=== PATIENT | female | born 1945 | race Two or more races ===

== ENCOUNTER 2018-05-12 08:14 | Inpatient (IN) | payer MEDICAID ==
[2018-04-26 10:38] LABS: APPEARANCE,URINE CLEAR; BILIRUBIN, URINE NEGATIVE (NEGATIVE); COLOR,URINE PALE YELLOW; GLUCOSE, URINE (UA) NEGATIVE (NEGATIVE); KETONES,URINE NEGATIVE (NEGATIVE); LEUKOCYTE ESTERASE ,URINE 3+ (NEGATIVE); NITRITE,URINE NEGATIVE (NEGATIVE); PH,URINE 7 (4.5-8.0); PROTEIN,URINE NEGATIVE (NEGATIVE); UROBILINOGEN,URINE NORMAL MG/DL (0.0-1.0)
[2018-04-26 10:45] LABS: BASOPHILS % (AUTO) 0.8 % (0.0-2.0); EOSINOPHILS % (AUTO) 0.7 % (0.0-3.0); HEMATOCRIT 42.7 % (37.0-47.0); HEMOGLOBIN 13.8 G/DL (12.0-16.0); LYMPHOCYTES % (AUTO) 32.5 % (20.0-45.0); MEAN CORPUSCULAR VOLUME 88 FL (80-99); MONOCYTES % (AUTO) 9.5 % (1.0-10.0); NEUTROPHILS % (AUTO) 56.5 % (45.0-75.0); PLATELET COUNT 193 K/UL (150-450); RED BLOOD COUNT 4.86 M/UL (4.20-5.40); RED CELL DISTRIBUTION WIDTH 12.8 % (11.6-14.8); WHITE BLOOD COUNT 6.7 K/UL (4.8-10.8)
[2018-04-26 10:54] LABS: INR 1.1 (0.9-1.1)
[2018-04-26 11:10] LABS: ANION GAP 5 mmol/L (5-15); BLOOD UREA NITROGEN 13 mg/dL (7-18); CALCIUM 9.5 MG/DL (8.5-10.1); CARBON DIOXIDE 32 MMOL/L (21-32); CHLORIDE 104 MMOL/L (98-107); CREATININE 0.7 MG/DL (0.55-1.30); POTASSIUM 4.9 MMOL/L (3.5-5.1); SODIUM 141 MMOL/L (136-145)
--- NOTE | 2018-04-26 11:26 | Diagnostic Imaging Report ---
Indication: Cough Comparison: None 2 views of the chest obtained. Findings: Heart size is normal. The aorta is mildly enlarged. Lungs are clear. Old rib fractures noted at the apex of the right lung. Bones are osteopenic. IMPRESSION: No acute disease. Evidence of previous trauma involving the right upper chest wall
--- NOTE | 2018-04-26 14:44 | Cardiology Report ---
APPROVED REPORT EKG Measurement Heart [id number] Normal sinus rhythm Normal ECG
--- NOTE | 2018-05-11 11:00 | Pre-op HX & Phy Repo 2 SIG ---
DATE OF OUTPATIENT SURGERY: 05/12/2018. HISTORY OF PRESENT ILLNESS: The patient is a 73-year-old female in overall stable health, who presented recently for screening mammogram. This revealed a mammographic lesion in the right breast at 11 o'clock 2 cm deep to the nipple. Core needle biopsy revealed invasive ductal carcinoma. She is scheduled to undergo right breast partial mastectomy with preoperative needle localization and right axillary lymph node biopsy, which will likely include resection of the nipple-areola complex. PAST MEDICAL HISTORY/MEDICATIONS: thyroid and omeprazole for gastritis. ALLERGIES: None. OPERATIONS: None. PHYSICAL EXAMINATION: VITAL SIGNS: The patient is 5 feet 6 inches, 172 pounds. HEENT: Within normal limits. LUNGS: Clear. HEART: Regular rhythm. BREASTS: Examination of the breast reveals breasts are medium in size. There is no palpable mass in either breast. There is no palpable axillary or supraclavicular lymphadenopathy. ABDOMEN: Soft. PELVIC: Per primary care physician. RECTAL: Per primary care physician. EXTREMITIES: Without edema. NEUROLOGIC: Physiologic. IMPRESSION: Invasive ductal carcinoma, right breast. ER and CA positive and HER2 negative. PLAN: Full discussion has been had with the patient regarding the nature of her condition, the nature of the surgery, indications, alternatives, options, and risks including bleeding, infection, need for additional procedures based on final pathology regarding breast and axilla, likely need to remove the nipple-areola complex, need for radiation therapy to the breast and possible need for chemotherapy or hormonal therapy based on final pathology. All questions have been answered. The patient understands and agrees to proceed. Deonte Giang M.D. DR: RITCHIE JOB#: [id number] CC: INGA
[2018-05-12] VITALS (15 sets, daily range): BP systolic 116–159; BP diastolic 64–83
[~2018-05-12] VITALS: Ht 162.6 cm; Wt 77.6 kg
[2018-05-12] MEDS ORDERED: LEVOTHYROXINE75 MCG ORAL (09:06)
[2018-05-12] MEDS ORDERED: OMEPRAZOLE10 M1 ORAL (09:06)
[2018-05-12] MEDS ORDERED: Lidocaine 1% MPF 10mg/ml 5ml ONE (09:20)
[2018-05-12] MEDS ORDERED: Sodium Chloride 10ml vial INJ ONE (09:20)
[2018-05-12] MEDS ORDERED: Dexamethasone 4mg/ml vial ONE (09:20)
[2018-05-12] MEDS ORDERED: Midazolam 2mg/2ml Inj ONE (09:24)
[2018-05-12] MEDS ORDERED: fentaNYL 100 mcg/2 mL IV ONE (09:24)
[2018-05-12] MEDS ORDERED: LR 1000ml 1,000 ML IVLG SCH (09:31)
[2018-05-12] MEDS ORDERED: NeoSporin Gu Irrig 1ml Amp IRRIG ONE (09:41)
[2018-05-12] MEDS ORDERED: Bacitracin 50000 Units Vial ONE (09:41)
--- NOTE | 2018-05-12 09:42 | Anethesia Preoperative Eval ---
Anesthesia Pre-op PMH/ROS General Date of Evaluation: May 12, 2018 Time of Evaluation: 09:56 Anesthesiologist: Mike ASA Score: ASA 3 Mallampati Score Class I : Soft palate, uvula, fauces, pillars visible Class II: Soft palate, uvula, fauces visible Class III: Soft palate, base of uvula visible Class IV: Only hard plate visible Mallampati Classification: Class II Surgeon: Padmaja Diagnosis: R Breast CA Surgical Procedure: R Breast Partial Mastectomy, Lymph Node Biopsy Anesthesia History: none Family History: no anesthesia problems Allergies: Coded Allergies: No Known Allergies (Unverified , 05/11/18) Medications: see eMAR Past Medical History Cardiovascular: Reports: HTN Gastrointestinal/Genitourinary: Reports: GERD Endocrine: Reports: hypothyroidism Hematology/Immune: Reports: other - R Breast CA Other: obesity - BMI 30 Anesthesia Pre-op Phys. Exam Physician Exam Last Vital Signs Date Time Temp Pulse Resp B/P (MAP) Pulse Ox O2 Delivery O2 Flow Rate FiO2 05/12/18 09:09 97.9 76 20 159/79 (105) 96 97.9 05/12/18 08:42 Room Air Constitutional: NAD Neurologic: CN 2-12 intact Cardiovascular: RRR Respiratory: CTA Gastrointestinal: S/NT/ND Airway Exam Mallampati Score: Class II MO: full ROM: full Teeth: missing, intact Anesthesia Pre-op A/P Risk Assessment & Plan Assessment: ASA 3 Plan: GA, SED Status Change Before Surgery: No Pre-Antibiotics Dru Gram Ancef IV Given Within 1 Hr of Incision: Yes Time Given: 10:11 Spike Melton MD May 12, 2018 09:42
[2018-05-12] MEDS ORDERED: Labetalol 5mg/ml 20ml vial IV PRN (09:45)
[2018-05-12] MEDS ORDERED: Atropine Sulfate 0.4mg/ml inj IVP PRN (09:45)
[2018-05-12] MEDS ORDERED: HYDROcodone/Acetamin 7.5/325 tab ORAL PRN (09:45)
[2018-05-12] MEDS ORDERED: Hydromorphone 0.5mg/0.5ml inj IVP PRN (09:45)
[2018-05-12] MEDS ORDERED: oxyCODONE HCL/Acetaminophen 5/325mg ORAL PRN (09:45)
[2018-05-12] MEDS ORDERED: Midazolam 2mg/2ml Inj IVP PRN (09:45)
[2018-05-12] MEDS ORDERED: DiphenhydrAMINE 50mg/ml Inj IVP PRN (09:45)
[2018-05-12] MEDS ORDERED: Ketorolac 30mg Inj IV PRN ×2 (09:45)
[2018-05-12] MEDS ORDERED: Meperidine 50mg/ml Inj(FOR RIGORS ONLY) IVP PRN (09:45)
[2018-05-12] MEDS ORDERED: LORazepam Inj 2mg/ml 1ml IV PRN (09:45)
[2018-05-12] MEDS ORDERED: Norco 5mg/325mg tab ORAL PRN (09:45)
[2018-05-12] MEDS ORDERED: Acetaminophen (Non formulary) 100 ML IV ONE (09:45)
[2018-05-12] MEDS ORDERED: Metoclopramide 10mg/2ml Inj IVP PRN (09:45)
[2018-05-12] MEDS ORDERED: fentaNYL 100 mcg/2 mL IV PRN (09:45)
--- NOTE | 2018-05-12 09:50 | Immediate Post-Op Evaluation ---
Immediate Post-Op Evalulation Immediate Post-Op Evalulation Procedure: R Breast Partial Mastectomy, Lymph Node Biopsy Date of Evaluation: May 12, 2018 Time of Evaluation: 12:07 IV Fluids: 600 LR Blood Products: 0 Estimated Blood Loss: 15 Urinary Output: 0 Blood Pressure Systolic: 146 Blood Pressure Diastolic: 76 Pulse Rate: 87 Respiratory Rate: 16 O2 Sat by Pulse Oximetry: 100 Temperature (Fahrenheit): 97.8 Pain Score (1-10): 3 Nausea: No Vomiting: No Complications 0 Patient Status: awake, reacts, patent, none Hydration Status: adequate Dru Gram Ancef IV Given Within 1 Hr of Incision: Yes Time Given: 10:11 Spike Melton MD May 12, 2018 09:50
--- NOTE | 2018-05-12 09:51 | 48 Hour Post Anesthesia Eval ---
Post Anesthesia Evaluation Procedure: R Breast Partial Mastectomy, Lymph Node Biopsy Date of Evaluation: May 12, 2018 Airway: patent Nausea: No Vomiting: No Pain Intensity: 2 Hydration Status: adequate Cardiopulmonary Status: Stable Mental Status/LOC: patient returned to baseline Follow-up Care/Observations: 0 Post-Anesthesia Complications: 0 Follow-up care needed: ready to discharge Spike Melton MD May 12, 2018 09:51
[2018-05-12] MEDS ORDERED: Propofol 200mg/20ml IV ONE (10:00)
[2018-05-12] MEDS ORDERED: NS Irrig 1000ml ONE (10:00)
[2018-05-12] MEDS ORDERED: LR 1000ml ONE (10:00)
[2018-05-12] MEDS ORDERED: Sterile Water Irrig 1000ml IRRIG ONE (10:00)
--- NOTE | 2018-05-12 10:02 | Pre-Procedure Note/Attestation ---
Pre-Procedure Note/Attestation Complete Prior to Procedure Planned Procedure: left Procedure Narrative: right breast partial mastectomy including nipple/areola with pre-operative needle localization and right axillary lymph node biopsy Indications for Procedure Pre-Operative Diagnosis: invasive ductal carcinoma right breast Attestation I attest that I discussed the nature of the procedure; its benefits; risks and complications; and alternatives (and the risks and benefits of such alternatives ), prior to the procedure, with the patient (or the patient's legal client relations representative). I attest that, if there was a reasonable possibility of needing a blood transfusion, the patient (or the patient's legal client relations representative) was given the [place] Department [employer] Services standardized written summary, pursuant to the [place] Blood Safety Act ([place] Health and Safety Code # 1645, as amended). I attest that I re-evaluated the patient just prior to the surgery and that there has been no change in the patient's H&P, except as documented below:none Deonte Giang MD May 12, 2018 10:02
[2018-05-12] MEDS ORDERED: ePHEDrine 50mg/ml Inj ONE (10:46)
[2018-05-12] MEDS ORDERED: Ketorolac 30mg Inj ONE (11:24)
--- NOTE | 2018-05-12 11:52 | Brief Operative Note ---
Immediate Post Operative Note Operative Note Pre-op Diagnosis: invasive ductal carcinoma right breast Procedure: right breast partial mastectomy including nipple/areola with pre-op needle localization and right axillary lymph node biopsy Post-op Diagnosis: same Post-op Diagnosis: same as pre-op Findings: consistent w/pre-op dx studies Surgeon: ariadna Anesthesiologist: basia Anesthesia: general Specimen: yes - breast, axillary node Complications: none Condition: stable Fluids: see anesthesia record Estimated Blood Loss: minimal Drains: BEBA Implant(s) used?: No Deonte Giang MD May 12, 2018 11:52
[2018-05-12] MEDS ORDERED: HYDROmorphone 1mg/ml Carpuject SUBQ PRN (12:00)
[2018-05-12] MEDS: D5 1/2NS w/KCl 20mEq 1,000 ML IV SCH (16:55)
--- NOTE | 2018-05-12 18:45 | Operative Note - Dictated ---
DATE OF OPERATION: 05/12/2018 SURGEON: Deonte Giang M.D. SENIOR GAME DEVELOPER SURGEON: None. ANESTHESIOLOGIST: Spike Melton M.D. TYPE OF ANESTHESIA: General. PREOPERATIVE DIAGNOSIS: Invasive ductal carcinoma, right breast, retroareolar. POSTOPERATIVE DIAGNOSIS: Invasive ductal carcinoma, right breast, retroareolar. OPERATION PERFORMED: Right breast partial mastectomy including nipple and areola with preoperative needle localization and right axillary lymph node biopsy. DESCRIPTION OF PROCEDURE: The patient was taken to the operating room and under general anesthesia with sequential compression device stockings in place, she was prepped and draped in the usual fashion including the right upper extremity in a sterile field. The carcinoma was just below the nipple and I did not feel I could safely save the nipple and areola. A transversely oriented elliptical incision was made and flaps dissected circumferentially with the needle localization wire brought into the field. The lesion was resected down to the chest wall circumferentially orienting it medially and superiorly with the nipple being anterior. Margins were assessed by the pathologist and additional superior tissue was taken to be sure that superior margin was clear. The field was irrigated and hemostasis was secured. The incision was closed in layers with 2-0 and 3-0 Vicryl followed by 4-0 Monocryl subcuticular suture. Attention was directed to the right axilla where a transverse curvilinear right axillary incision was made achieving hemostasis with cautery and incising the clavipectoral fascia. There were no abnormal lymph nodes. A lower-level dissection was performed achieving hemostasis with clips and cautery. Through a separate stab incision inferiorly, a 19 mm Barry drain was placed into the axilla and sutured to the skin with a 2-0 silk suture. The field was irrigated and hemostasis was secured. The pathologist confirmed the presence of lymph node in the tissue. The incision was closed with interrupted 2-0 and 3-0 Vicryl and the skin closed with continuous 4-0 Monocryl subcuticular suture. Tincture of benzoin and half-inch Steri-Strips were applied to both incisions followed by dry sterile dressing. Final sponge and needle counts were correct. A postoperative surgical brassiere was applied. The patient tolerated the procedure well and left the operating room in good condition. Don Trav Giang DR: Arik JOB#: [id number] CC:
[2018-05-12] MEDS: Norco 5mg/325mg tab ORAL PRN (20:11)
[2018-05-13] VITALS: BP 109/59
[2018-05-13 04:00] VITALS: BP 111/60
[2018-05-13] MEDS: D5 1/2NS w/KCl 20mEq 1,000 ML IV SCH (04:23)
[2018-05-13] MEDS: Norco 5mg/325mg tab ORAL PRN (06:25)
[2018-05-13 08:00] VITALS: BP 114/65
--- NOTE | 2018-05-13 08:41 | General Progress Note ---
Progress Note Progress Note AVSS Having pain relieved with [place]. Ambulated only to bathroom. Tolerating po intake Right breast and axillary incisions clean with intact steristrips. BEBA drain with drainage only in tubing Imp. Stable Plan: discharge with supplies/limitations/instructions provided/discussed f/u 05/19 Rx [place] 5/325 #20 Deonte Giang MD May 13, 2018 08:41
[2018-05-13] MEDS ORDERED: NORCO 5-325 TA1 EACH ORAL ×2 (09:04→09:05)
[2018-05-13 11:24] VITALS: BP 111/60
--- NOTE | 2018-05-13 11:24 | 48 Hour Post Anesthesia Eval ---
Post Anesthesia Evaluation Procedure: R Breast Partial Mastectomy, Lymph Node Biopsy Date of Evaluation: May 13, 2018 Time of Evaluation: 06:20 Blood Pressure Systolic: 111 0: 60 Pulse Rate: 74 Respiratory Rate: 18 Temperature (Fahrenheit): 97.9 O2 Sat by Pulse Oximetry: 94 Airway: patent Nausea: No Vomiting: No Pain Intensity: 2 Hydration Status: adequate Cardiopulmonary Status: at baseline Mental Status/LOC: patient returned to baseline - 0 Post-Anesthesia Complications: 0 Follow-up care needed: N/A - further care as per primary team Laila Esposito MD May 13, 2018 11:24
--- NOTE | 2018-05-16 14:18 | Discharge Summary ---
Discharge Summary Hospital Course Date of Admission May 12, 2018 at 14:42 Date of Discharge May 13, 2018 at 10:20 Admitting Diagnosis breast cancer Reason for Hospitalization: elective surgery DELMI Man is a 73 year old female who was admitted on May 12, 2018 at 14:42 for Breast Cancer Procedures s/p 05/12/[address] Giang right breast partial mastectomy including nipple/areola with pre-op needle localization and right axillary lymph node biopsy Hospital Course s/p surgery course of recovery uneventful pain management addressed, and pain controlled initially IV fluids started on diet as tolerated, able to tolerate oral intake antiemetics as needed on board right breast and axillary incision clean with intact steri-strips BEBA drain with minimal drainage ( in tubing only) hemodynamically stable voided freely ambulated pathology report revealed invasive ductal carcinoma with intermediate grade, 10 mm in greatest dimension. Final surgical margins negative for malignancy. Two benign lymph nodes negative for metastatic carcinoma. supplies provided on discharge limitations discussed discharge instruction provided patient to follow-up with surgeon on in clinic prescription for analgesic provided FINAL DIAGNOSES invasive ductal carcinoma right breast s/p right breast partial mastectomy (including nipple/areola with pre-op needle localization and right axillary lymph node biopsy) Discharge Medications Continued Medications: Hydrocodone Bit/Acetaminophen 5-325* ([place] 5-325*) 1 Each Tablet 1 TAB ORAL Q4H PRN for For Pain, #20 TAB 0 Refills (This prescription has been renewed) Hydrocodone Bit/Acetaminophen 5-325* ([place] 5-325*) 1 Each Tablet 1 TAB ORAL Q4H PRN for For Pain, #20 TAB 0 Refills (This prescription has been renewed) Levothyroxine Sodium* (Levothyroxine Sodium*) 75 Mcg Tablet 75 MCG ORAL DAILY, TAB (This prescription has been renewed) Take in the morning on an empty stomach, at least 30 minutes before food. Omeprazole (Omeprazole) 10 Mg Capsule. 10 MG ORAL DAILY, #30 CAP 0 Refills (This prescription has been renewed) Discharge Condition Upon Discharge: stable Discharge Disposition Patient was discharged to Home () Discharge Instructions Discharge Instructions Special Instructions I have been assigned to complete a D/C Summary on this account. I was not involved in the patient management France Roger NP May 16, 2018 14:18
== END 2018-05-13 10:20 | disposition home or self-care (01) | DRG 363 ==
LOC: SUR 08:14 → 3E 14:42
PROC: 07B50ZX Excision of Right Axillary Lymphatic, Open Approach, Diagnostic (ICD-10-PCS; 2018-05-12)
PROC: 0HBT0ZZ Excision of Right Breast, Open Approach (ICD-10-PCS; principal; 2018-05-12 10:00)
DX: C50.411 Malignant neoplasm of upper-outer quadrant of right female breast (principal); E03.9 Hypothyroidism, unspecified; Z17.0 Estrogen receptor positive status [ER+]; K29.70 Gastritis, unspecified, without bleeding
CPT/HCPCS: 36415; 71046; 80048; 81001; 85025; 85610; 85730; 93005; 94003; 94150; J2250; J2405